=== PATIENT | male | born 1960 ===

== ENCOUNTER 2022-03-24 07:34 | Emergency (ER) | payer SELFPAY ==
[2022-03-24] MEDS ORDERED: HYDROmorphone 2 MG/ML SDV IM ONE (07:47)
[2022-03-24] MEDS ORDERED: Ketorolac 60 MG/2 ML SDV IM ONE (08:25)
[2022-03-24] MEDS ORDERED: Acetaminophen/HYDROcodone 325-5 MG Tab ONE (08:30)
== END 2022-03-24 08:45 | disposition home or self-care (01) ==
LOC: LB.ED 07:34
DX: S29.9XXA Unspecified injury of thorax, initial encounter (principal); Z72.0 Tobacco use; W18.30XA Fall on same level, unspecified, initial encounter
CPT/HCPCS: 36415; 71250; 80053; 85025; 96372; 99284; A9270; J1170; J1885